=== PATIENT | male | born 1965 | race African-American/Black ===

== ENCOUNTER → 2017-02-23 | Outpatient (CLI) | payer BC ==
--- NOTE | 2017-02-23 11:41 | RADIOLOGY REPORT (SQ) ---
EXAM DESCRIPTION: LUMBAR SPINE COMPLETE COMPLETED DATE/TIME: 02/23/2017 9:05 am REASON FOR STUDY: PAIN IN LEFT HIP/RT HIP, LOW BACK PAIN M25.551 PAIN IN RIGHT HIP M25.552 PAIN IN LEFT HIP M54.5 LOW BACK PAIN COMPARISON: None. NUMBER OF VIEWS: Five views including obliques. TECHNIQUE: AP, lateral, oblique, and sacral radiographic images acquired of the lumbar spine. LIMITATIONS: None. FINDINGS: MINERALIZATION: Normal. SEGMENTATION: Normal. No transitional anatomy. ALIGNMENT: Normal. VERTEBRAE: Maintained height. No fracture or worrisome bone lesion. DISCS: Mild disc space loss of height at L4-5 POSTERIOR ELEMENTS: Pedicles and facets are intact. No pars defect or posterior arch defects. Facet joint space narrowing and bony spurring at L4-5, and L5-S1. HARDWARE: None in the spine. PARASPINAL SOFT TISSUES: Normal. PELVIS: Intact as visualized. No fractures or worrisome bone lesions. Ankylosis across the SI joints . Bilateral fusion. OTHER: No other significant finding. IMPRESSION: Lower lumbar degenerative changes as above. TECHNICAL DOCUMENTATION: JOB ID: [id number] [employer]- All Rights Reserved
--- NOTE | 2017-02-23 11:45 | RADIOLOGY REPORT (SQ) ---
EXAM DESCRIPTION: HIPS BILATERAL COMPLETED DATE/TIME: 02/23/2017 9:05 am REASON FOR STUDY: PAIN IN LEFT HIP/RT HIP, LOW BACK PAIN M25.551 PAIN IN RIGHT HIP M25.552 PAIN IN LEFT HIP M54.5 LOW BACK PAIN COMPARISON: None. NUMBER OF VIEWS: Two views TECHNIQUE: AP pelvis and additional frog-leg view of both hips. LIMITATIONS: None. FINDINGS: MINERALIZATION: Normal. HIPS: No acute fracture or dislocation. No worrisome bone lesions. No significant right or left hip joint space narrowing or bony spurring. PELVIS AND SACRUM: No acute fracture or dislocation. No worrisome bone lesions. There is fusion acr oss the SI joints bilaterally from arthritis PUBIS AND ISCHIUM: No acute fracture. LOWER LUMBAR SPINE: Lower lumbar facet arthropathy SOFT TISSUES: No findings. OTHER: No other significant finding. 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 Lower lumbar facet arthropathy. No significant hip joint space narrowing or bony spurring. TECHNICAL DOCUMENTATION: JOB ID: [id number] [employer]- All Rights Reserved
== END ==
LOC: OD 08:46
PROVIDERS: ATTEND Family Medicine
DX: M25.551 Pain in right hip (principal); M25.552 Pain in left hip; M54.5 Low back pain
CPT/HCPCS: 72110; 73522

== ENCOUNTER 2018-09-14 17:39 | Emergency (ER) | payer BC ==
[2018-09-14 19:55] VITALS: BP 132/89
--- NOTE | 2018-09-14 20:07 | ER Document Report ---
ED Medical Screen (RME) - General Chief Complaint: Abdominal Pain Stated Complaint: ABDOMINAL PAIN Time Seen by Provider: 09/14/18 20:01 Mode of Arrival: Ambulatory Information source: Patient TRAVEL OUTSIDE OF THE [place] IN LAST 30 DAYS: No COUNTRY TRAVELED TO/FROM: [place] [facility] Patient complains to provider of: ABDO PAIN Notes: 09/14/18 20:05 Patient here with complaints of right lower quadrant abdominal pain. The patient was sent in from urgent care. The patient states that he has been having some right lower quadrant abdominal pain. The pain started somewhat suddenly a few days ago, seemed to subside and then came back again today. He still has some pain but states that it is somewhat mild at this time. No nausea, vomiting, diarrhea. No dysuria or hematuria. No fever. No prior abdominal surgeries, no history of kidney stones. Exam Nontoxic, no distress. Lungs clear and equal throughout. Heart sounds normal. Right lower quadrant abdominal tenderness to palpation on limited triage abdominal exam. Plan CBC, CMP, lipase, urine, saline lock, CT abdomen pelvis with IV contrast. An initial examination was made on the patient as part of the triage process, and it was determined a more comprehensive evaluation was necessary. Initial labs were ordered and patient was transferred to another provider in the ED who assumed care and finished evaluation and plan. - Related Data Allergies/Adverse Reactions: No Known Allergies Allergy (Verified 09/14/18 19:57) Past Medical History - Social History Frequency of alcohol use: Occasional Drug Abuse: None - Past Medical History Cardiac Medical History: Reports: Hx Hypertension Denies: Hx Coronary Artery Disease, Hx Heart Attack Pulmonary Medical History: Denies: Hx Asthma, Hx Bronchitis, Hx COPD, Hx Pneumonia Neurological Medical History: Denies: Hx Cerebrovascular Accident, Hx Seizures Endocrine Medical History: Reports: Hx Diabetes Mellitus Type 2 Renal/ Medical History: Denies: Hx Peritoneal Dialysis Musculoskeltal Medical History: Denies Hx Arthritis Past Surgical History: Reports: Hx Orthopedic Surgery - right knee replacement - Immunizations Hx Diphtheria, Pertussis, Tetanus Vaccination: Yes Physical Exam - Vital signs Vitals: Temp Pulse Resp BP Pulse Ox 98.1 F 63 18 140/86 H 99 09/14/18 18:18 09/14/18 18:18 09/14/18 18:18 09/14/18 18:18 09/14/18 18:18 Course - Vital Signs Vital signs: Temp Pulse Resp BP Pulse Ox 98.9 F 55 L 19 132/89 H 98 09/14/18 19:54 09/14/18 19:54 09/14/18 19:54 09/14/18 19:54 09/14/18 19:54
[2018-09-14 21:00] LABS: ABSOLUTE BASOPHILS # (AUTO) 0.1 10^3/uL (0.0-0.2); ABSOLUTE EOSINOPHILS # (AUTO) 0.2 10^3/uL (0.0-0.6); ABSOLUTE MONOCYTES (AUTO) 0.5 10^3/uL (0.1-1.4); ABSOLUTE NEUT (AUTO) 3.3 10^3/uL (1.7-8.2); BASOPHILS % (AUTO) 1.1 % (0-2); EOSINOPHILS % (AUTO) 2.8 % (0-6); HEMATOCRIT 44.1 % (37.9-51.0); HEMOGLOBIN 14.7 g/dL (13.5-17.0); LYMPHOCYTES % (AUTO) 33.2 % (13-45); MEAN CORPUSCULAR HEMOGLOBIN 25.6 pg (27.0-33.4); MEAN CORPUSCULAR HGB CONC 33.4 g/dL (32.0-36.0); MEAN CORPUSCULAR VOLUME 77 fl (80-97); MONOCYTES % (AUTO) 8.8 % (3-13); PLATELET COUNT 250 10^3/uL (150-450); RED BLOOD COUNT 5.74 10^6/uL (4.35-5.55); RED CELL DISTRIBUTION WIDTH 14.5 % (11.5-14.0); SEGMENTED NEUTROPHILS % (AUTO) 54.1 % (42-78); TOTAL CELLS COUNTED % (AUTO) 100 %; WHITE BLOOD COUNT 6.1 10^3/uL (4.0-10.5)
[2018-09-14 21:17] LABS: APPEARANCE,URINE CLEAR; BILIRUBIN,URINE NEGATIVE (NEGATIVE); COLOR,URINE YELLOW; GLUCOSE, URINE NEGATIVE (NEGATIVE); KETONES,URINE NEGATIVE (NEGATIVE); LEUKOCYTE ESTERASE,URINE NEGATIVE (NEGATIVE); NITRITE,URINE NEGATIVE (NEGATIVE); PROTEIN,URINE NEGATIVE (NEGATIVE); URINE SPECIFIC GRAVITY 1.021; UROBILINOGEN,URINE NEGATIVE mg/dL (<2.0)
[2018-09-14 21:19] LABS: ALANINE AMINOTRANSFERASE 47 U/L (21-72); ALBUMIN 4.3 g/dL (3.5-5.0); ALKALINE PHOSPHATASE 92 U/L (38-126); ANION GAP 10 (5-19); ASPARTATE AMINO TRANSFERASE 40 U/L (17-59); BILIRUBIN,DIRECT 0.3 mg/dL (0.0-0.4); BILIRUBIN,TOTAL 0.7 mg/dL (0.2-1.3); BLOOD UREA NITROGEN 13 mg/dL (7-20); CALCIUM 10.1 mg/dL (8.4-10.2); CARBON DIOXIDE 31 mmol/L (22-30); CHLORIDE 102 mmol/L (98-107); GLUCOSE 100 mg/dL (75-110); POTASSIUM 4.1 mmol/L (3.6-5.0); SODIUM 143.1 mmol/L (137-145); TOTAL PROTEIN 7.5 g/dL (6.3-8.2)
--- NOTE | 2018-09-14 22:25 | RADIOLOGY REPORT (SQ) ---
EXAM DESCRIPTION: CT ABDOMEN PELVIS WITH IV CONTRAST COMPLETED DATE/TME: 09/14/2018 20:05 CLINICAL HISTORY: 53 years Male RLQ PAIN COMPARISON: None. TECHNIQUE: Contiguous axial images obtained through the abdomen and pelvis following IV contrast. Reformatted images obtained. This exam was performed according to our department optimization program which includes automated exposure control, adjustment of the mA and/or kv according to patient size and/or use of iterative reconstruction technique. FINDINGS: The liver appears unremarkable. The spleen and pancreas appear unremarkable. No adrenal masses. The kidneys appear unremarkable without delayed nephrogram or hydronephrosis. There is a 3 mm UVJ stone on the right which is nonobstructing. Urinary bladder is incompletely distended. The gallbladder is visualized. No aneurysmal dilatation of the aorta. No bowel obstruction. The appendix is unremarkable. No significant free fluid noted. There is a ventral hernia containing fat. IMPRESSION: 3 mm UVJ stone on the right which appears to be nonobstructing Fatty liver Ventral hernia containing fat
--- NOTE | 2018-09-14 22:53 | ER Document Report ---
ED GI/ - General Chief Complaint: Abdominal Pain Stated Complaint: ABDOMINAL PAIN Time Seen by Provider: 09/14/18 20:01 Mode of Arrival: Ambulatory Information source: Patient Notes: Patient is a 53-year-old male comes emergency room complaining of right lower quadrant pain. Patient states he started with pain approximately 2 days ago it is come and gone and then come back again. It was quite extensive made him nauseous and sweaty when it first occurred and then it dissipated for 24 hours and then came back slightly and now he rates it at about 1 or 2 out of 5. Denies any other problems no nausea vomiting or diarrhea. TRAVEL OUTSIDE OF THE [place] IN LAST 30 DAYS: No COUNTRY TRAVELED TO/FROM: [facility] Patient complains to provider of: Flank pain. No: Testicular pain, Urinary retention, Vomiting Onset: Other Timing/Duration: Sudden - 2 days Quality of pain: Cramping, Pressure, Sharp, Stabbing, Throbbing Severity at maximum: Severe Severity in ED: Mild, Moderate Pain Level: 2 Location: RLQ, Right flank. No: Low back, Left testicle, Right testicle Sexual history: Active Associated symptoms: Nausea Exacerbated by: Denies Relieved by: Denies Similar symptoms previously: No Recently seen / treated by doctor: No - Related Data Allergies/Adverse Reactions: No Known Allergies Allergy (Verified 09/14/18 19:57) Past Medical History - General Information source: Patient - Social History Smoking Status: Never Smoker Cigarette use (# per day): No Chew tobacco use (# tins/day): No Smoking Education Provided: No Frequency of alcohol use: None Drug Abuse: None Lives with: Alone Family History: Reviewed & Not Pertinent Patient has suicidal ideation: No Patient has homicidal ideation: No - Past Medical History Cardiac Medical History: Reports: Hx Hypertension Denies: Hx Coronary Artery Disease, Hx Heart Attack Pulmonary Medical History: Denies: Hx Asthma, Hx Bronchitis, Hx COPD, Hx Pneumonia Neurological Medical History: Denies: Hx Cerebrovascular Accident, Hx Seizures Endocrine Medical History: Reports: Hx Diabetes Mellitus Type 2 Renal/ Medical History: Denies: Hx Peritoneal Dialysis Musculoskeletal Medical History: Denies Hx Arthritis Past Surgical History: Reports: Hx Orthopedic Surgery - right knee replacement - Immunizations Hx Diphtheria, Pertussis, Tetanus Vaccination: Yes Review of Systems - Review of Systems Constitutional: No symptoms reported EENT: No symptoms reported Cardiovascular: No symptoms reported Respiratory: No symptoms reported Gastrointestinal: See HPI, Nausea, Vomiting Genitourinary: Flank pain Male Genitourinary: No symptoms reported Musculoskeletal: No symptoms reported Skin: No symptoms reported Hematologic/Lymphatic: No symptoms reported Neurological/Psychological: No symptoms reported Physical Exam - Vital signs Vitals: Temp Pulse Resp BP Pulse Ox 98.1 F 63 18 140/86 H 99 09/14/18 18:18 09/14/18 18:18 09/14/18 18:18 09/14/18 18:18 09/14/18 18:18 Interpretation: Hypertensive - Notes Notes: PHYSICAL EXAMINATION: GENERAL: Patient is well-nourished well-developed 53-year-old male who is in no apparent distress on physical exam this evening however he does not appear to be just a little uncomfortable tonight. He is not toxic appearing at all. HEAD: Atraumatic, normocephalic. EYES: Pupils equal round and reactive to light, extraocular movements intact, sclera anicteric, conjunctiva are normal. ENT: Nares patent, oropharynx clear without exudates. Moist mucous membranes. NECK: Normal range of motion, supple without lymphadenopathy LUNGS: Breath sounds clear to auscultation bilaterally and equal. No wheezes r ales or rhonchi. HEART: Regular rate and rhythm without murmurs ABDOMEN: Examination patient's abdomen shows he has some mild tenderness diffusely across the lower right quadrant area. He has some still very faint right-sided flank tenderness to palp patient and percussion. Musculoskeletal: Normal range of motion, no pitting or edema. No cyanosis. NEUROLOGICAL: Normal speech, normal gait. Normal sensory, motor exams PSYCH: Normal mood, normal affect. SKIN: Warm, Dry, normal turgor, no rashes or lesions noted. Course - Re-evaluation Re-evalutation: 09/14/18 22:[address] came back that shows a 3 mm nonobstructing stone in the right distal UVJ.. His labs were negative urine and it was negative at this time we will treat him with just a mild amount of pain medication and let him go home. I have instructed him to follow-up with urologist on discharge tomorrow. - Vital Signs Vital signs: Temp Pulse Resp BP Pulse Ox 98.9 F 55 L 19 132/89 H 98 09/14/18 19:54 09/14/18 19:54 09/14/18 19:54 09/14/18 19:54 09/14/18 19:54 - Laboratory Result Diagrams: 09/14/18 20:42 09/14/18 20:42 Laboratory results interpreted by me: 09/14/18 09/14/18 20:42 20:42 RBC 5.74 H MCV 77 L MCH 25.6 L RDW 14.5 H Carbon Dioxide 31 H Discharge - Discharge Clinical Impression: Ureterolithiasis Condition: Stable Disposition: HOME, SELF-CARE Instructions: Abdominal Pain ([facility]), Kidney Stone ([facility]) Additional Instructions: Home and rest. Medication as prescribed. As we discussed the need to follow-up with urologist outpatient. Should you have any concerns or problems with the pain returns or he spike a fever have nausea or vomiting return to ER for recheck. Prescriptions: Hydrocodone/Acetaminophen [[place] 5-325 mg Tablet] 1 tab PO Q6 #10 tablet Ketorolac Tromethamine [Toradol 10 mg Tablet] 10 mg PO TID PRN #21 tablet PRN Reason:
== END 2018-09-14 23:13 | disposition home or self-care (01) ==
LOC: ER 17:39
DX: N20.1 Calculus of ureter (principal); R10.31 Right lower quadrant pain; R11.0 Nausea; R61 Generalized hyperhidrosis; I10 Essential (primary) hypertension
CPT/HCPCS: 36415; 74177; 80053; 81001; 83690; 85025; 99284